=== PATIENT | male | born 1995 | race Caucasian/White ===

== ENCOUNTER → 2017-05-17 | Day surgery (SDC) | payer BC ==
[~2017-05-17] VITALS: Ht 182.9 cm; Wt 63.5 kg
[~2017-05-17] MED LIST: 500ML BSSPLUS 0.5ML EPI1:1000 IRRIG ONE; ACETAMINOPHEN 325 MG TAB PO PRN; ATROPINE SULFATE 0.1 MG/ML 5ML SYR IV PRN; BSS FLUSH ONE; BUPIVACAINE HCL 0.75% 10 ML AMP/VIAL ONE; CEFAZOLIN SOD 1 GM VIAL ONE; DEXAMETHASONE SOD INJ 4 MG/ML VIAL ONE; EpHEDrine SULFATE INJ 50 MG/ML AMP IV PRN; EpINEphrine INJ 1MG/ML AMP 1 MG/ML AMP ONE; FENTANYL CITRATE INJ 50 MCG/1 ML 2 ML VIAL IV PRN; FENTANYL CITRATE INJ 50 MCG/1 ML 2 ML VIAL ONE; HYALURONIDASE HUMAN 150 UNIT/ML INJ ONE; INDOCYANINE GREEN 25 MG/10 ML ONE; LIDOCAINE HCL 2% 2 ML VIAL (20MG/ML) ONE; LIDOCAINE MPF 4% INJ INJ ONE; MIDAZOLAM HCL 1 MG/ML 2ML VIAL ONE; NEOMYCIN/POLYMYX/DEXAMETH OP OINT PER APP CHARGE ONE; OCUCOAT 1 ML SOLN IO ONE; ONDANSETRON INJ 2 MG/ML 2 ML VIAL IV PRN; ONDANSETRON INJ 2 MG/ML 2 ML VIAL ONE; PATIENT'S ALLERGY INFO NEEDS ENTERED SCH; PROPARACAINE 0.5% OP SOLN PER DROP CHARGE OPL SCH; PROPOFOL IV EMULSION 10 MG/ML 20 ML VIAL IV ONE; TIMOLOL MALEATE 0.5% OP SOLN PER DROP CHARGE ONE; TRIAMCINOLONE ACETONIDE OPHTH 40 MG/ML VIAL STERILE IO ONE
[2017-05-17 09:20] VITALS: Ht 182.9 cm; Wt 63.5 kg
[2017-05-17] MEDS: PHENYLEPHRINE HCL 2.5% OP SOLN PER DROP CHARGE OPL SCH ×2 (09:20→09:27)
[2017-05-17] MEDS: TROPICAMIDE 1% OP SOLN PER DROP CHARGE OPL SCH ×2 (09:21→09:27)
[2017-05-17] MEDS: LACTATED RINGER'S 1000ML 500 ML IV SCH ×2 (09:26→12:58)
--- NOTE | 2017-05-17 11:02 | History & Physical Bridge - [place] ---
H&P Re-Evaluation Bridge Note: Pt has a macular hole in the left eye and is here for vitrectomy of the left eye. I have examined the patient, reviewed the History & Physical and in the interval since the performance of the History & Physical I have noted the following changes of clinical significance: No changes noted
--- NOTE | 2017-05-17 12:39 | [facility] Operative Report ---
Operative Report Date of Service May 17, 2017. Operative Report PREOPERATIVE DIAGNOSIS: Macular hole, left eye. ICD10 CODE: H35.342 POSTOPERATIVE DIAGNOSIS: same. PROCEDURE: 1. Pars plana vitrectomy, 23 gauge. 2. Membrane peeling of the internal limiting membrane. 3. Fluid-air exchange. 4. Air-gas exchange w/ SF6 20 %. All to the left eye. CPT CODE: 92148 SURGEON: Max Burrell D.O. COMPLICATIONS: None. ESTIMATED BLOOD LOSS: None. SPECIMENS: None. ANESTHESIA: LMA and Retrobulbar block. INDICATIONS FOR PROCEDURE: The patient has a macular hole that is visually significant from exposure to a blue laser. Vitrectomy surgery is indicated to decrease risk of vision loss and potentially improve vision. CONSENT: The risks, benefits and alternatives were discussed with the patient including but not limited to decreased visual acuity, failure to achieve desired results, loss of the eye, infection, pain, glaucoma, lens changes, retinal tears, retinal detachment, the need for more procedures, drooping of the eyelid, blindness, and double vision. The patient is aware of risks and consents to the surgery. Consent is signed and on the chart. OPERATION AND FINDINGS: The patient was brought to the operating room where the patient was identified by name, date, and medical record number. The surgical site was confirmed with the informed written consent. A LMA was used by the anesthesiology team after which a 50:50 mixture of 4% lidocaine and 0.75% bupivacaine with hyaluronidase was administered in a standard retrobulbar fashion. A total of 4 ml was administered without difficulty. The patient was then prepped and draped in the usual sterile manner for retinal surgery. A wire lid speculum was placed and an Keo 23-gauge trocar cannula system was employed. The inferior temporal trocar cannula was first placed in an angled fashion 3.75mm posterior to the surgical limbus and the infusion cannula was inserted into this cannula after which the intravitreal position was verified prior to turning the infusion on. Two more trocar cannulas were then inserted in an angled fashion, one in the superior temporal, and one in the superior nasal quadrant both 3.75mm posterior to the surgical limbus. A light pipe and vitrector were then introduced into the eye and the BIOM wide angle viewing system was brought into place. Standard core vitrectomy was performed and the vitreous was insured to be totally detached from the posterior pole with the aid of the vitrector and Triescence for visualization. Next 0.05ml of indocyanine green was placed over the macular surface to stain the internal limiting membrane. This was washed from the eye after 10 seconds. At this point a flat contact lens was placed on the surface of the eye and a flex scraper and ILM forceps were then used to gently peel the internal limiting membrane surrounding the macular hole without difficulty. At this point scleral depression was performed for 360 degrees and no retinal tears or detachments were noted. A soft tip cannula was used to perform a fluid- air exchange. Next, SF6 20% was injected in through the infusion cannula for a complete gas fill of the eye. The trocar cannulas were then removed and found to be air tight. The intraocular pressure was found to be within normal limits by palpation and subconjunctival injections of Kefzol and dexamethasone were administered inferiorly and superiorly. The wire lid speculum was removed. Maxitrol and timolol were applied to the surface of the eye. A light patch and shield were taped over the surface of the eye and the patient was awoken from anesthesia without difficulty. He left the Operating Room in stable condition having tolerated the procedure well. DISPOSITION: A gas bracelet was placed on the patients wrist. The patient was instructed to maintain a face down position overnight. The patient is to call immediately if there are any problems overnight. I attest to the content of the Intraoperative Record and any orders documented therein. Any exceptions are noted below.
--- NOTE | 2017-05-17 12:41 | Discharge Instructions-SurgCtr ---
Discharge Instructions Date of Service May 17, 2017. Visit Reason for Visit: Macular Hole, Left Hole Discharge Discharge Diagnosis / Problem: same Discharge Goals Goal(s): Improve function Activity Recommendations Activity Limitations: per Instructions/Follow-up section Anesthesia . Post Anesthesia Instructions: If you have had General Anesthesia or IV Sedation: * Do not drive today. * Resume driving when surgeon permits. * Do not make important decisions or sign legal documents today. * Call surgeon for: 1. Temperature elevations greater than 101 degrees F. 2. Uncontrollable pain. 3. Excessive bleeding. 4. Persistent nausea and vomiting. 5. Medication intolerance (nausea, vomiting or rash). * For nausea and vomiting use only clear liquids such as: tea, soda, bouillon until nausea subsides, then gradually increase diet as tolerated. * If you have any concerns or questions, call your surgeon's office. If physician is unavailable and it is an emergency, call 911 or go to the nearest emergency room. . Instructions / Follow-Up Instructions / Follow-Up * May take Tylenol if needed for discomfort. * Do NOT lay flat on back and position head as follows: Face down/chin down as much as possible during daytime. Sleep on right side with head turned toward floor or sleep face down with head turned toward left slightly. * Do NOT remove green bracelet until instructed to do so by your surgeon and follow these precautions: * No air travel * No travel above 2500 feet * No nitrous oxide (N2O). * Do NOT remove eye shield. * NO straining, heavy lifting (>15 pounds) or bending below waist. * Avoid getting water or soap directly into operative eye. * Do NOT rub eye. If you experience increasing eye pain not relieved by medication, please contact us immediately at [phone]. If you are unable to reach someone at the above number, call [phone] and ask to speak with the EYE DOCTOR ORDERING BOX OPERATOR. Inform them that you are a Dr. Burrell patient who had recent surgery. Diet Recommendations Home Diet: resume previous diet Procedures Procedures Performed: Left Eye Vitrectomy 23 Gauge with instillation of SF6 gas. Pending Studies Studies pending at discharge: no Medical Emergencies . Who to Call and When: Medical Emergencies: If at any time you feel your situation is an emergency, please call 911 immediately. . Non-Emergent Contact Non-Emergency issues call your: Warehouse Attendant . . "Provider Documentation" section prepared by Max Burrell. .
[2017-05-17 13:15] VITALS: TEMP 36.7
--- NOTE | 2017-05-17 13:32 | Anesthesia Progress Nt - [facility] ---
Anesthesia Post Op Note Date & Time May 17, 2017 at 13:32 Vital Signs Pain Intensity: 0 Vital Signs Past 12 Hours Date Time Temp Pulse Resp B/P (MAP) Pulse Ox O2 Delivery O2 Flow Rate FiO2 05/17/17 13:15 36.7 50 16 122/81 (95) 98 Room Air 05/17/17 13:11 47 7 107/68 98 05/17/17 13:11 36.8 52 7 05/17/17 13:06 56 18 110/72 99 05/17/17 13:06 56 18 05/17/17 13:01 51 9 05/17/17 13:01 50 9 115/75 100 05/17/17 12:56 53 17 05/17/17 12:56 54 17 130/71 100 05/17/17 12:51 51 12 126/76 100 05/17/17 12:51 51 12 05/17/17 12:46 51 16 109/71 100 05/17/17 12:46 50 16 05/17/17 12:42 36.6 46 16 114/75 100 Mask 6 05/17/17 12:42 114/75 05/17/17 09:16 36.5 58 16 128/84 (99) 100 Room Air Notes Mental Status: alert / awake / arousable, participated in evaluation Pt Amnestic to Procedure: Yes Nausea / Vomiting: adequately controlled Pain: adequately controlled Airway Patency, RR, SpO2: stable & adequate BP & HR: stable & adequate Hydration State: stable & adequate Anesthetic Complications: no major complications apparent
[2017-05-17 13:41] VITALS: BP 122/82; PULSE 49; O2SAT 100
== END | disposition home or self-care (01) ==
LOC: X.SURG 09:00
PROVIDERS: ATTEND Ophthalmology
DX: H35.342 Macular cyst, hole, or pseudohole, left eye (principal); F17.220 Nicotine dependence, chewing tobacco, uncomplicated; Z82.49 Family history of ischemic heart disease and other diseases of the circulatory system; Z83.3 Family history of diabetes mellitus